=== PATIENT | male | born 1940 | race Native Hawaiian/Other Pacific Islander ===

== ENCOUNTER 2017-09-20 12:48 | Observation (INO) | payer OTHER ==
[~2017-09-20] VITALS: Ht 172.7 cm; Wt 62.4 kg
[2017-09-20 14:41] LABS: PLATELET COUNT 417 K/uL (142-355)
[2017-09-20 15:12] LABS: PARTIAL THROMBOPLASTIN TIME 29.8 SECONDS (24.5-33.6)
[2017-09-20 15:18] VITALS: BP 152/79; TEMP 98.2; Ht 172.7 cm; Wt 62.4 kg
[2017-09-20 15:18] LABS: POTASSIUM 3.7 mmol/L (3.6-5.2)
[2017-09-20 16:00] VITALS: BP 152/79; TEMP 98.2
[2017-09-20 20:00] VITALS: BP 153/82; TEMP 98.4
[2017-09-21] VITALS: BP 135/75; TEMP 98.5
[2017-09-21 04:00] VITALS: BP 146/81; TEMP 98.3
[2017-09-21 06:38] LABS: PLATELET COUNT 311 K/uL (142-355)
[2017-09-21 07:28] LABS: POTASSIUM 3.5 mmol/L (3.6-5.2)
[2017-09-21 08:03] VITALS: BP 127/67; TEMP 98.4
[2017-09-21 12:05] VITALS: BP 137/61; TEMP 99.3
[2017-09-21 16:00] VITALS: BP 152/69; TEMP 98.5
[2017-09-21 17:27] LABS: POTASSIUM 3.8 mmol/L (3.6-5.2)
[2017-09-21] MEDS ORDERED: LOSA50TA PO (18:37)
[2017-09-21] MEDS ORDERED: HYDROCHLOROT50 MG PO (18:38)
[2017-09-21 20:00] VITALS: BP 157/83; TEMP 98.3
[2017-09-22] VITALS: BP 155/74; TEMP 98.7
[2017-09-22 04:00] VITALS: BP 127/75; TEMP 98.2
[2017-09-22 05:58] LABS: PLATELET COUNT 326 K/uL (142-355)
[2017-09-22 06:24] LABS: POTASSIUM 4.1 mmol/L (3.6-5.2)
[2017-09-22 08:00] VITALS: BP 172/79; TEMP 98.6
[2017-09-22 12:00] VITALS: BP 116/63; TEMP 97.8
[2017-09-22 16:00] VITALS: BP 153/82; TEMP 98
[2017-09-22] MEDS ORDERED: TRAM50TA PO (17:37)
[2017-09-22] MEDS ORDERED: MEMANTINE HCL10 MG PO (17:39)
[2017-09-22] MEDS ORDERED: METO50TA27 PO (17:44)
[2017-09-22] MEDS ORDERED: ALLO100T22 PO (17:44)
[2017-09-22] MEDS ORDERED: AMLODIPINE BESYLATE PO (17:49)
--- NOTE | 2017-09-22 20:04 | NUR ---
09/22/171999 PT DISCAHRGED WITH INSTRUCTIONS AND RX GIVEM.PT AMBULATED OUT AT HIS REQUEST PRESENT TO TAKE HOME.PT SAID HE WILL FOLLOW UP WITH DR. ORTIZ ON WEDNESDAY MORNING.SALINE LOCK TO LEFT AC REMOVED SECURED WITH 2X2 TAPE.CC
== END 2017-09-22 20:00 | disposition home or self-care (01) ==
LOC: MED/SURG 12:48
PROVIDERS: ADMIT Family Medicine
DX: R07.89 Other chest pain (principal); R55 Syncope and collapse; I10 Essential (primary) hypertension
CPT/HCPCS: 36415; 80053; 82550; 83036; 83735; 83880; 84100; 84484; 85027; 85610; 85730; 93005; 96365; 96366; 96372; 99220; G0378; G0379; J1650

== ENCOUNTER 2018-09-06 13:03 | Outpatient (CLI) | payer OTHER ==
[~2018-09-06 13:03] MED LIST: ALLO100T22 PO; AMLODIPINE BESYLATE PO; HYDROCHLOROT50 MG PO; LOSA50TA PO; MEMANTINE HCL10 MG PO; METO50TA27 PO; TRAM50TA PO
[2018-09-06] MEDS ORDERED: TAMS0.4C PO (13:23)
[2018-09-06] MEDS ORDERED: AMLODIPINE BESYLATE PO (13:23)
[2018-09-06] MEDS ORDERED: CARV6.25 PO (13:23)
[2018-09-06] MEDS ORDERED: THERMOTABS PO (13:24)
== END 2018-09-06 13:04 | disposition short-term general hospital (02) ==
LOC: AMB 13:03
DX: R41.82 Altered mental status, unspecified (principal)
CPT/HCPCS: A0425; A0427

== ENCOUNTER 2018-09-06 13:14 | Emergency (ER) | payer OTHER ==
[~2018-09-06] VITALS: Ht 172.7 cm; Wt 63.5 kg
[2018-09-06] MEDS ORDERED: AMLODIPINE BESYLATE PO (13:23)
[2018-09-06] MEDS ORDERED: TAMS0.4C PO (13:23)
[2018-09-06] MEDS ORDERED: CARV6.25 PO (13:23)
[2018-09-06] MEDS ORDERED: THERMOTABS PO (13:24)
[2018-09-06 13:44] LABS: PLATELET COUNT 240 K/uL (142-355)
[2018-09-06 13:51] LABS: POTASSIUM 4.9 mmol/L (3.6-5.2)
[2018-09-06 15:00] VITALS: BP 131/64; TEMP 97.8
== END 2018-09-06 15:00 | disposition short-term general hospital (02) ==
LOC: ED 13:14
PROVIDERS: Family Medicine
PROC: 0T9B70Z Drainage of Bladder with Drainage Device, Via Natural or Artificial Opening (ICD-10-PCS; principal; 2018-09-06)
DX: I21.4 Non-ST elevation (NSTEMI) myocardial infarction (principal); R91.8 Other nonspecific abnormal finding of lung field; J44.9 Chronic obstructive pulmonary disease, unspecified; R57.0 Cardiogenic shock; I44.5 Left posterior fascicular block
CPT/HCPCS: 36415; 36600; 51702; 80053; 81000; 82550; 82805; 83880; 84484; 85027; 85379; 93005; 94660; 94664; 96365; 96375; 99285; J1265; J2930

== ENCOUNTER 2018-09-06 15:13 | Outpatient (CLI) | payer OTHER ==
[~2018-09-06 15:13] MED LIST changes: +CARV6.25 PO; +TAMS0.4C PO; +THERMOTABS PO
== END 2018-09-06 15:44 | disposition short-term general hospital (02) ==
LOC: AMB 15:13
DX: R57.0 Cardiogenic shock (principal)
CPT/HCPCS: A0425; A0427